=== PATIENT | male | born 1945 | race Caucasian/White ===

== ENCOUNTER 2018-02-18 07:58 | Day surgery (SDC) | payer MEDICARE, SELFPAY ==
--- NOTE | 2018-02-12 14:04 | EKG12_ITS ---
Test Reason : PRE OP Blood Pressure : / mmHG Vent. Rate : 065 BPM Atrial Rate : 065 BPM P-R Int : 144 ms QRS Dur : 088 ms QT Int : 380 ms P-R-T Axes : 055 060 073 degrees QTc Int : 395 ms Normal sinus rhythm Low voltage QRS ( limb leads) Confirmed by REBECA RICHARD, YOLANDA ([id number]), scientific publications editor CHRISTOPHER CROCKETT ([id number]) on 02/13/2018 4:30:49 PM Referred By: Shadi Root Confirmed By:YOLANDA JOSE MD
[2018-02-12 15:17] LABS: Hematocrit 43.5 % (40-54); Hemoglobin 14.3 g/dl (13.0-16.5); Mean Corp Hgb Conc 32.9 g/gl (32-36); Mean Corpuscular Volume 91.4 fL (80-94); Mean Platelet Vol. 10.7 fl (6.2-12.0); Platelet Count 176 K/mm3 (150-450); RBC Distribution Width CV 13.2 % (11.6-14.6); RBC Distribution Width SD 43.9 fl (35.1-43.9); Red Blood Count 4.76 M/mm3 (4.6-6.2); White Blood Count 4.4 K/mm3 (4.4-11.0)
[2018-02-12 15:41] LABS: Scan Indicated on CBC? Y/N NO
[2018-02-12 15:42] LABS: Anion Gap 7 (5-15); BUN 16 mg/dL (7-18); BUN/Creat Ratio 11.2 RATIO (10-20); Calcium,Total 8.7 mg/dL (8.5-10.1); Chloride 106 mmol/L (98-107); Creatinine, Serum 1.43 mg/dL (0.70-1.30); EST Glomerular Filtration Rate 51 mL/min (>60); Est Glom Filt Rate - Afr Amer 62 mL/min (>60); Glucose 104 mg/dL (74-106); Potassium 4.1 mmol/L (3.5-5.1); Sodium Level 142 mmol/L (136-145)
[2018-02-18] VITALS (7 sets, daily range): BP systolic 122–146; BP diastolic 80–93; PULSE 67–73; RESP 16; TEMP 36.3–36.6; O2SAT 92–94; BMI 35.4
--- NOTE | 2018-02-18 09:40 | TUR_PTH ---
PATIENT: RAE CORDERO LOC: [facility] [place] U#:[id number] AGE/SX: 72/M ROOM: RE02/18/[address]: Dr. Shadi Root MD : [id number] BED: DIS: 02/18/2018 SPEC #: [id number] RECD: 02/18/18 15:32 STATUS: MURIEL KUSH #: [id number] TESSA: 02/18/18 09:[address]: Shadi Root DEPT: SURGICAL PATHOLOGY RECD BY: Lan Das ENTERED: 02/19/18 08:29 SP TYPE: TURBINATES OTHR DR: Dr. Raymond Heredia MD Tissues: Nasal turbinate, NOS Procedures: Decalcification bone/plaque Surgery Specimen Level III HEADER OPERATION: Septoplasty, resect/outfracture turbinates PRE-OP DIAGNOSIS: Hypertrophy of nasal turbinates TISSUE SUBMITTED: Nasal septum and cartilage MICROSCOPIC DIAGNOSIS Nasal septum and cartilage, septoplasty: Fragments of hyaline cartilage and bone with reparative and reactive change. AM:kwan 02/22/18 MICROSCOPIC DESCRIPTION Slides are reviewed. GROSS DESCRIPTION Received in fixative is one container labeled with the patient's name and designated nasal septum and cartilage. The specimen consists of multiple fragments of cartilage and bone that in aggregate measure 5 x 3 x 0.3 cm. Service Director tissue is submitted in one cassette after decalcification. / SJ:kwan 02/19/18 TC:5 CPT: 60354, 84172
--- NOTE | 2018-02-18 10:01 | DCINST_ITS ---
You will use the following diet at home:: No restrictions, Regular Discharge Activity: Return to Normal Activity, - - no nose blowing Additional Activity Instructions:: Start saline nasal spray tomorrow. Irrigate 3-4x/day. Allergies/Adverse Reactions: Allergies No Known Allergies Allergy (Verified 02/18/18 08:38) Medications to take at Discharge Bupropion HCl [Wellbutrin Xl] 150 mg PO QHS 02/11/18 Glucosamine Sulf/Chondroitin A [Glucosamine-Chondroitin Cap] 2 each PO QHS 02/11/18 Multivitamin [Multiple Vitamins] 1 each PO QHS 02/11/18 Omeprazole [Prilosec] 40 mg PO QHS 02/11/18 RX: Terazosin HCl 10 mg PO QHS 02/11/18 Simvastatin [Zocor] 20 mg PO QHS 02/11/18 Orders to be completed after discharge: 12 Lead EKG [CVS] Time Frame: 02/12/18, Location: None Selected CBC-Complete Blood Cnt No Diff Time Frame: 02/12/18, Location: Laboratory Primary Care Physician: Raymond Heredia MD [Primary Care Provider] - Test Results: Test results from this visit will be discussed in further detail at your follow- up appointment, if applicable.
[2018-02-18] MEDS: Oxymetazoline 0.05% 1 SPRAY SPRAY.BTL 15 SPRAY (10:24)
[2018-02-18] MEDS: Mupirocin Ointment 22gm Tube 1 APPLIC (10:25)
--- NOTE | 2018-02-18 11:19 | PCM.OPRPT ---
Report of Operation Date of Procedure: 02/18/18 Pre-Operative Diagnosis: nasal airway obstruction. deviated septum. Inferior turbinate hypertrophy Post-Operative Diagnosis: same Surgery/Procedure Performed:: septoplasty. submucous resection of the inferior turbinates Description of Surgical Findings:: as above boiling tub operator: None Type of Anesthesia:: General Anesthesiologist: Sixto Harris Specimen's removed: septum Estimated Blood Loss (mL): 100 cc Description of Procedure: The patient was taken to the OR on 02/18/18. He was placed in the supine position on the OR table. He was given sufficient general endotracheal anesthesia. The head of bed was elevated 30 degrees. The patient was draped steriley. 1% lidocaine with epinephrine was injected into the septum, columella, nasal floor bilaterally and anterior aspect of the turbinates. I trimmed vibrissae with scissors. I then made a hemitransfixtion incision on the left with a 15 blade. I elevated the mucoperichondrium off off of the septum on the left. In this way, an anterior and posterior tunnel were created. I then the leon-cartilaginous junction. A posterior tunnel was created on the right with a freer. The deviated portion of the posterior quadrangular cartilage was removed with open Edouard Patel forceps. The deviated portions of the leon septum were taken down using the open Edouard Patel forceps. A large left septal spur was removed with a freer. The maxillary crest was taken down with a hammer and chisel. Hemostasis was achieved with afrin pledgets and willie. Next, I made an incision at the anterior aspect of the right inferior turbinate, at the mucocutaneous junction, with a 15 blade. A submucous pocket was dissected using a [place] elevator. Submucous resection was carried out with a microdebrider. Hemostasis was achieved with afrin pledgets. The incision was then closed with 4-0 chromic. Next, I made an incision at the anterior aspect of the left inferior turbinate, at the mucocutaneous junction, with a 15 blade. A submucous pocket was dissected using a Patti elevator. Submucous resection was carried out with a microdebrider. Hemostasis was achieved with afrin pledgets. The incision was then closed with 4-0 chromic. I sewed a rent in the septal mucosa, at the area of old spur, with 4-0 chromic. The hemitransfixtion incision was closed with 4-0 chromic. Montero nasal splints were applied to each side of the septum and sewn through and through with 3-0 silk. The patient was awoken. He was brought to the recovery room in stable condition. Blood loss 100 cc. Replacement none. Sponge, needle and instrument count were correct at the end of the procedure.
[2018-02-18] MEDS: HYDROcodone Bitartrate/Apap 5/325 Tablet PO (12:32)
--- OUTSIDE RECORDS SUMMARY | 2018-04-13 07:40 | XMS RPT_ITS ---
:1945 Author Organization OHIP Care Team Providers Name Role Phone RAYMOND ALEXANDER Referring Unavailable OLDER, ANNE (TELEMARKETING SALES REPRESENTATIVE) Attending Unavailable OLDER, ANNE (LINNETTE) Attending Unavailable LULA, ANNE (TELEMARKETING SALES REPRESENTATIVE) Referring Unavailable Shadi Root Attending Unavailable Shadi Root Referring Unavailable Raymond Alexander Primary Care Unavailable Moodisbabatunde, Shan Attending Unavailable Shadi Root Referring Unavailable PROBLEMS PROBLEMS DATE TYPE CONDITION / CODE ATTENDING STATUS SOURCE 02/21/2018 Unknown R94.31 - Abnormal [place], Active [place] electrocardiogram [facility] [ECG] [EKG] / Hospital R94.31(ICD-10) Repository 02/21/2018 Unknown I10 - Essential [place], Active [place] (primary) hypertension [facility] / I10(ICD-10) Hospital Repository 01/25/2005 Active Malignant neoplasm of NA Active [place] prostate / C61(ICD-10) [facility] [place] Repository 12/17/2017 Active Other hyperlipidemia / NA Active [place] E78.49(ICD-10) [facility] [place] Repository PROCEDURES PROCEDURES No Procedure Records FoundRESULTS RESULTS OPERATIVE REPORT Observed: 02/18/2018 Status: F Source: ALEXI 11:30 AM [facility] [place] [place] REPOSITORY [facility] Medical Records Department [address] [place] [address] Operative Report 02/18/18 1119 MR#: [id number] Acct: [id number] Name: PELON CORDERO Rep #: [id number] : 1945 72 From: Shadi Root MD PCP: Raymond Alexander MD Status: REG SDC Y Location: [place] [address] Report of Operation Date of Procedure: 02/18/18 Pre-Operative Diagnosis: nasal airway obstruction. deviated septum. Inferior turbinate hypertrophy Post-Operative Diagnosis: same Surgery/Procedure Performed:: septoplasty. submucous resection of the inferior turbinates Description of Surgical Findings:: as above sales expert: None Type of Anesthesia:: General Anesthesiologist: Sixto Harris Specimen's removed: septum Estimated Blood Loss (mL): 100 cc Description of Procedure: The patient was taken to the OR on 02/18/18. He was placed in the supine position on the OR table. He was given sufficient general endotracheal anesthesia. The head of bed was elevated 30 degrees. The patient was draped steriley. 1% lidocaine with epinephrine was injected into the septum, columella, nasal floor bilaterally and anterior aspect of the turbinates. I trimmed vibrissae with scissors. I then made a hemitransfixtion incision on the left with a 15 blade. I elevated the mucoperichondrium off off of the septum on the left. In this way, an anterior and posterior tunnel were created. I then the leon-cartilaginous junction. A posterior tunnel was created on the right with a freer. The deviated portion of the posterior quadrangular cartilage was removed with open [place] Patel forceps. The deviated portions of the leon septum were taken down using the open [place]ou[place] Patel forceps. A large left septal spur was removed with a freer. The maxillary crest was taken down with a hammer and chisel. Hemostasis was achieved with afrin pledgets and willie. Next, I made an incision at the anterior aspect of the right inferior turbinate, at the mucocutaneous junction, with a 15 blade. A submucous pocket was dissected using a [place] elevator. Submucous resection was carried out with a microdebrider. Hemostasis was achieved with afrin pledgets. The incision was then closed with 4-0 chromic. Next, I made an incision at the anterior aspect of the left inferior turbinate, at the mucocutaneous junction, with a 15 blade. A submucous pocket was dissected using a Patti elevator. Submucous resection was carried out with a microdebrider. Hemostasis was achieved with afrin pledgets. The incision was then closed with 4-0 chromic. I sewed a rent in the septal mucosa, at the area of old spur, with 4-0 chromic. The hemitransfixtion incision was closed with 4-0 chromic. Montero nasal splints were applied to each side of the septum and sewn through and through with 3-0 silk. The patient was awoken. He was brought to the recovery room in stable condition. Blood loss 100 cc. Replacement none. Sponge, needle and instrument count were correct at the end of the procedure. 02/18/18 1130 <Electronically signed by Shadi Root MD> Date Shadi Root MD CC: Shadi Root MD; Raymond Alexander MD Signed DISCHARGE INSTRUCTION Observed: 02/18/2018 Status: F Source: [place] 10:01 AM [facility] [place] [place] REPOSITORY [facility] Medical Records Department [address] [place] [id number] Instructions for Home/Discharge Instructions 02/18/18 1001 MR#: [id number] Acct: [id number] Name: PELON CORDERO Rep #: [id number] : 1945 72 From: Shadi Root MD PCP: Raymond Alexander MD Status: REG [facility] [place] You will use the following diet at home:: No restrictions, Regular Discharge Activity: Return to Normal Activity, - - no nose blowing Additional Activity Instructions:: Start saline nasal spray tomorrow. Irrigate 3-4x/day. Allergies/Adverse Reactions: Allergies No Known Allergies Allergy (Verified 02/18/18 08:38) Medications to take at Discharge Bupropion HCl [Wellbutrin Xl] 150 mg PO QHS 02/11/18 Glucosamine Sulf/Chondroitin A [Glucosamine-Chondroitin Cap] 2 each PO QHS 02/11/18 Multivitamin [Multiple Vitamins] 1 each PO QHS 02/11/18 Omeprazole [Prilosec] 40 mg PO QHS 02/11/18 RX: Terazosin HCl 10 mg PO QHS 02/11/18 Simvastatin [Zocor] 20 mg PO QHS 02/11/18 Orders to be completed after discharge: 12 Lead EKG [CVS] Time Frame: 02/12/18, Location: None Selected CBC-Complete Blood Cnt No Diff Time Frame: 02/12/18, Location: Laboratory Primary Care Physician: Raymond Alexander MD [Primary Care Provider] - Test Results: Test results from this visit will be discussed in further detail at your follow-up appointment, if applicable. 02/18/18 1001 <Electronically signed by Shadi Root MD> Date Shadi Root MD CC: Raymond Alexander MD TURBINATES Observed: 02/18/2018 Status: F Source: ALEXI 9:40 AM [facility] [place] [place] REPOSITORY Patient: PELON CORDERO : 1945 (72/M) Acct Num: [id number] Phys: Shadi Root MD Unit Num: [id number] Loc: [facility] [place] Specimen: [id number] Received: 02/18/181531 Spec Type: TURBINATES TISSUES 1 TISSUES: Nasal turbinate, NOS GROSS DESCRIPTION Received in fixative is one container labeled with the patient's name and designated nasal septum and cartilage. The specimen consists of multiple fragments of cartilage and bone that in aggregate measure 5 x 3 x 0.3 cm. Taxation Consultant tissue is submitted in one cassette after decalcification. / SJ: kwan 02/19/18 TC:5 CPT: 05520, 62880 HEADER OPERATION: Septoplasty, resect/outfracture turbinates PRE-OP DIAGNOSIS: Hypertrophy of nasal turbinates TISSUE SUBMITTED: Nasal septum and cartilage MICROSCOPIC DESCRIPTION Slides are reviewed. MICROSCOPIC DIAGNOSIS Nasal septum and cartilage, septoplasty: Fragments of hyaline cartilage and bone with reparative and reactive change. AM:kwan 02/22/18 Signed Jacinto Bates 02/22/18 <signature on file> Performed By: #### PTUR #### [facility] [place], [address] 12 LEAD ELECTROCARDIOGRAM Observed: 02/15/2018 Status: F Source: ALEXI 9:28 AM [facility] [place] [place] REPOSITORY [facility] Cardiovascular Services [address] [place] [address] 12 Lead EKG 02/12/18 1427 MR#: [id number] Acct: [id number] Name: PELON CORDERO Rep #: [id number] : 1945 72 From: Shan Jose MD Attending Dr: Shadi Root MD Status: PRE SDC Ordering Dr: Shadi Root MD Date: 02/12/18 Location: [facility] [place] Sex: M C Admitted: Test Reason : PRE OP Blood Pressure : / mmHG Vent. Rate : 065 BPM Atrial Rate : 065 BPM P-R Int : 144 ms QRS Dur : 088 ms QT Int : 380 ms P-R-T Axes : 055 060 073 degrees QTc Int : 395 ms Normal sinus rhythm Low voltage QRS ( limb leads) Confirmed by REBECA RICHARD, SHAN ([id number]), acquisition editor CHRISTOPHER CROCKETT ([id number]) on 02/13/2018 4:30:49 PM Referred By: Shadi Root Confirmed By:SHAN JOSE MD 02/13/18 1630 Date Shan Jose MD CC: Shadi Root MD; Raymond Alexander MD Signed CBC-COMPLETE BLOOD CNT Collected: 02/12/2018 Status: F Source: ALEXI NO DIFF 1:48 PM [facility] [place] [place] REPOSITORY TYPE CODE TESTS RESULT OUT OF RANGE REFERENCE UNITS LAB L100.1000 4.4-11.0 K/mm3 Normal WBC 4.4 LAB L100.1200 4.6-6.2 M/mm3 Normal RBC 4.76 LAB L100.1300 13.0-16.5 g/dl Normal HGB 14.3 LAB L100.1400 40-54 % Normal HCT 43.5 LAB L100.1500 80-94 fL Normal MCV 91.4 LAB L100.1600 27.0-32.0 pg Normal MCH 30.0 LAB L100.1700 32-36 g/gl Normal MCHC 32.9 LAB L100.1810 11.6-14.6 % Normal RDW CV 13.2 LAB L100.1820 35.1-43.9 fl Normal RDW SD 43.9 LAB L100.1900 150-450 K/mm3 Normal PLT 176 LAB L100.2000 6.2-12.0 fl Normal MPV 10.7 Performed By: #### L100.0500 #### [facility] [address] [place], [place], [address] BASIC METABOLIC Collected: 02/12/2018 Status: F Source: [place] PROFILE ([facility]) 1:48 PM [facility] [place] [place] REPOSITORY TYPE CODE TESTS RESULT OUT OF RANGE REFERENCE UNITS LAB L501.0100 74-106 mg/dL Normal GLU 104 Result Comment: Fasting Glucose result from 100 to 125 mg/dL suggests IMPAIRED HOMEOSTASIS per A.D.A. criteria. Please note revised GLUCOSE reference range effective 2017. LAB L501.1000 7-18 mg/dL Normal BUN 16 LAB L501.1100 0.70-1.30 mg/dL High CREAT,SERUM 1.43 Result Comment: The validity of the calculated GFR AND GFRAA in patients over 70 years has not been determined. Clinical correlation is essential. LAB L501.1110 >60 mL/min Low EST GFR 51 Result Comment: Non- GFR Calc LAB L501.1115 >60 mL/min Normal EST GFR - AA 62 Result Comment: GFR Calc LAB L501.1300 10-20 RATIO Normal BUN/CRE 11.2 LAB L501.2200 8.5-10.1 mg/dL CA Normal 8.7 LAB L501.5300 136-145 mmol/L NA Normal 142 LAB L501.5600 3.5-5.1 mmol/L K Normal 4.1 LAB L501.5900 98-107 mmol/L CL Normal 106 LAB L501.6100 21.0-32.0 mmol/L Normal CO2 29.0 LAB L501.6200 5-15 Normal GAP 7 Performed By: #### L500.2500 #### [facility] [address] [place], [address] PROGRESS Observed: 01/18/2018 Status: COMPLETED Source: [place] 10:09 AM [facility] REPOSITORY HNO ID: [id number] Author: Anne Bai) Older Service: (none) Author Type: Nurse Practitioner Type: Progress Notes Filed: 01/18/2018 10:29 AM Note Text: CC Patient presents with: 1 month follow up blood pressure HPI Pelon Cordero is a 72 year old male who presents to the office for blood pressure. His visit today is for follow-up. Patient was last seen for this approximately 1 month ago. Recent medication adjustments: Yes, hytrin increased to 10 mg daily. Home BP's: does check BP's away from this office with average BP's in the 120's over 70's range. Symptoms referable to elevated blood pressure (headache, chest pain, palpitations, dyspnea, peripheral edema, fatigue, blurred vision): No BP medications: Patient denies any side effects of his medication(s) and is compliant with their regimen. Last 4 Encounter BP Readings: Date: BP: 01/18/2018 120/70 12/21/2017 158/110 07/09/2017 122/72 01/11/2017 114/74 Last 3 Encounter Wt Readings: Date: Wt: 01/18/2018 109.6 kg (241 lb 9.6 oz) 12/21/2017 107.5 kg (237 lb) 07/09/2017 106.6 kg (235 lb) Patient attributes elevated BP to weight gain. Constantly overeats, eats even when he is full and portion sizes are large. Requesting medication to help curb his appetite. 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 - PERS HX MALIG SKIN MELANOMA 08/12/2005 - Unspecified sleep apnea 06/26/2005 PAST SURGICAL HISTORY Procedure Laterality Date - COLONOSCOP W/ OR W/O BRSH SPEC 06/25/15 Colonoscopy - COLONOSCOPY W/BX 11/14/05 - EGD W/ REM POLYP-SNARE STOMACH 11/14/05 - EGD W/O OR W/BRUSH/WASH EGD - EGD W/O OR W/BRUSH/WASH 06/25/15 EGD - LAPAROSCOPIC CHOLEYCYSTECTOMY 01/17 Cholecystectomy, lap - RADIATION ONCOLOGY PROCEDURE 2005 prostate ALLERGIES Patient has no known allergies. MEDICATIONS simvastatin (ZOCOR) 20 mg tablet Take 1 tablet by mouth daily at bedtime. terazosin (HYTRIN) 10 mg capsule Take 1 capsule by mouth daily at bedtime. Awnktourqnk-Nxplqppry-Wsw C-Mn (GLUCOSAMINE CHONDROITIN MAXSTR) 500-400 mg cap Take 1 capsule by mouth once daily. [DISCONTINUED] omeprazole (PRILOSEC) 20 mg capsule Take 2 capsules by mouth daily before breakfast. 1/2 hr before meal. FAMILY HISTORY Problem Relation Age of Onset - other (Stomach Cancer) Mother - other (Stomach Cancer) Brother - Heart Brother [place] age 53, half brother - None Sister Social History Substance Use Topics - Smoking status: Never Smoker - Smokeless tobacco: Never Used - Alcohol use No PHYSICAL EXAM BP 120/70 (BP Site: Left Arm, BP Position: Sitting, BP Cuff Size: Large Adult) Pulse 72 Temp 36.5 ?C (97.7 ?F) Resp 12 Wt 109.6 kg (241 lb 9.6 oz) SpO2 96% BMI 36.74 kg/m? General Appearance: well appearing, in no acute distress, alert Lungs: Lungs clear to auscultation. No wheezing, rhonchi, rales Heart: RRR without murmur, gallop, or rubs. No ectopy ASSESSMENT/PLAN: 1. Essential hypertension - ICD9: 401.9, ICD10: I10 (primary diagnosis) - good control - Continue current medication(s) - Encouraged dietary sodium restriction/DASH diet - Recommended regular aerobic exercise. - Recommend home blood pressure monitoring, to bring results in on next visit - Discussed need and benefit for weight loss. - Recheck in one year at annual physical, sooner should new symptoms or problems arise. - Goal of BP <130/80 2. Obesity, Class II, BMI 35-39.9 - ICD9: 278.00, ICD10: E66.9 Start Wellbutrin, see orders Call office for refills if effective Prescription instructions reviewed with patient as applicable. Potential red flag symptoms discussed with the patient. Reviewed appropriate action plan to take if red flag symptoms occur. Patient agreeable to treatment plan Anne Cotton APRN.CNP CNOV Observed: 01/18/2018 Status: COMPLETED Source: [place] 10:00 AM [facility] REPOSITORY Office Visit (INTMWS) PELON CORDERO ([id number]) 1945 M Date Time Provider Department 01/18/18 10:00 AM ANNE COTTON (LINNETTE) INTMWS During your visit today, we recorded the following information about you: Temperature Pulse Respiration Blood pressure 97.7 degrees 72/minute 12/minute 120/70 Weight 109.6 kg Anne Cotton APRN.CNP 01/18/2018 10:29 AM Signed CC Patient presents with: 1 month follow up blood pressure HPI Pelon Cordero is a 72 year old male who presents to the office for blood pressure. His visit today is for follow-up. Patient was last seen for this approximately 1 month ago. Recent medication adjustments: Yes, hytrin increased to 10 mg daily. Home BP's: does check BP's away from this office with average BP's in the 120's over 70's range. Symptoms referable to elevated blood pressure (headache, chest pain, palpitations, dyspnea, peripheral edema, fatigue, blurred vision): No BP medications: Patient denies any side effects of his medication(s) and is compliant with their regimen. Last 4 Encounter BP Readings: Date: BP: 01/18/2018 120/70 12/21/2017 158/110 07/09/2017 122/72 01/11/2017 114/74 Last 3 Encounter Wt Readings: Date: Wt: 01/18/2018 109.6 kg (241 lb 9.6 oz) 12/21/2017 107.5 kg (237 lb) 07/09/2017 106.6 kg (235 lb) Patient attributes elevated BP to weight gain. Constantly overeats, eats even when he is full and portion sizes are large. Requesting medication to help curb his appetite. 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 - PERS HX MALIG SKIN MELANOMA 08/12/2005 - Unspecified sleep apnea 06/26/2005 PAST SURGICAL HISTORY Procedure Laterality Date - COLONOSCOP W/ OR W/O BRSH SPEC 06/25/15 Colonoscopy - COLONOSCOPY W/BX 11/14/05 - EGD W/ REM POLYP-SNARE STOMACH 11/14/05 - EGD W/O OR W/BRUSH/WASH EGD - EGD W/O OR W/BRUSH/WASH 06/25/15 EGD - LAPAROSCOPIC CHOLEYCYSTECTOMY 01/17 Cholecystectomy, lap - RADIATION ONCOLOGY PROCEDURE 2005 prostate ALLERGIES Patient has no known allergies. MEDICATIONS simvastatin (ZOCOR) 20 mg tablet Take 1 tablet by mouth daily at bedtime. terazosin (HYTRIN) 10 mg capsule Take 1 capsule by mouth daily at bedtime. Exqaluziwvh-Tzeneydde-Trc C-Mn (GLUCOSAMINE CHONDROITIN MAXSTR) 500-400 mg cap Take 1 capsule by mouth once daily. [DISCONTINUED] omeprazole (PRILOSEC) 20 mg capsule Take 2 capsules by mouth daily before breakfast. 1/2 hr before meal. FAMILY HISTORY Problem Relation Age of Onset - other (Stomach Cancer) Mother - other (Stomach Cancer) Brother - Heart Brother [place] age 53, half brother - None Sister Social History Substance Use Topics - Smoking status: Never Smoker - Smokeless tobacco: Never Used - Alcohol use No PHYSICAL EXAM BP 120/70 (BP Site: Left Arm, BP Position: Sitting, BP Cuff Size: Large Adult) Pulse 72 Temp 36.5 ?C (97.7 ?F) Resp 12 Wt 109.6 kg (241 lb 9.6 oz) SpO2 96% BMI 36.74 kg/m? General Appearance: well appearing, in no acute distress, alert Lungs: Lungs clear to auscultation. No wheezing, rhonchi, rales Heart: RRR without murmur, gallop, or rubs. No ectopy ASSESSMENT/PLAN: 1. Essential hypertension - ICD9: 401.9, ICD10: I10 (primary diagnosis) - good control - Continue current medication(s) - Encouraged dietary sodium restriction/DASH diet - Recommended regular aerobic exercise. - Recommend home blood pressure monitoring, to bring results in on next visit - Discussed need and benefit for weight loss. - Recheck in one year at annual physical, sooner should new symptoms or problems arise. - Goal of BP <130/80 2. Obesity, Class II, BMI 35-39.9 - ICD9: 278.00, ICD10: E66.9 Start Wellbutrin, see orders Call office for refills if effective Prescription instructions reviewed with patient as applicable. Potential red flag symptoms discussed with the patient. Reviewed appropriate action plan to take if red flag symptoms occur. Patient agreeable to treatment plan LANDON Kline APRN.CNP 01/18/2018 10:19 AM Signed Bupropion: Side effects usually subside within 2 weeks, if they are still bothersome after this time please call me. Do not abrubtly stop this medicine. Many symptoms, which typically occurs within days of abruptly stopping this medication, may include dizziness, nausea, fatigue, muscle aches, chills, anxiety, and irritability. Although these symptoms are not dangerous and usually dissipate over one to two weeks, they can be quite distressing and uncomfortable.Avoid rrha-xpe-yybjheb St [place] Wart, Ephedra, Meridia, and others while on this medication. If you have any thoughts of suicide please call me or go to the Emergency Dept immediately. Referring Provider: ANNE COTTON ([facility]) [[id number]] Allergies As of Date: 01/18/2018 (No Known Allergies) Date Reviewed: 01/18/2018 Reviewed by: Maggie Iqbal LPN - Fully Assessed Reason for Visit: 1 month follow up blood pressure [Other] Primary Visit Diagnosis:Essential hypertension [I10] Other Visit Diagnosis:Obesity, Class II, BMI 35-39.9 [E66.9] Order(s):Omeprazole 40 mg capsuleTake 1 capsule by mouth once daily.Disp: 90 capsuleRfl: 3 buPROPion XL (WELLBUTRIN XL) 150 mg 24 hr tabletTake 1 tablet by mouth once daily.Disp: 30 tabletRfl: 1 Prescriptions as of 01/18/2018 Sig: SIMVASTATIN 20 MG TABLET Take 1 tablet by mouth daily * TERAZOSIN 10 MG CAPSULE Take 1 capsule by mouth daily* HSOCRLOCVKN-UIUIEHFXU-VWN C-M* Take 1 capsule by mouth once * OMEPRAZOLE 40 MG CAPSULE,TATY* Take 1 capsule by mouth once * BUPROPION XL 150 MG TAB Take 1 tablet by mouth once d* Problem List As Of Date 01/18/2018 Noted Resolved MALIGN NEOPL PROSTATE [C61] INVALID FOR* More... Hyperlipidemia [E78.5] INVALID FOR* Gastroesophageal reflux disease with esophagiti*INVALID FOR* Unspecified sleep apnea [G47.30] INVALID FOR*05/28/2015 Lumbago [M54.5] INVALID FOR*09/25/2012 Personal history of malignant melanoma of skin *INVALID FOR* More... 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 Do not abrubtly stop this medicine. Many symptoms, which typically occurs within days of abruptly stopping this medication, may include dizziness, nausea, fatigue, muscle aches, chills, anxiety, and irritability. Although these symptoms are not dangerous and usually dissipate over one to two weeks, they can be quite distressing and uncomfortable.Avoid oaci-mvb-cuvnugd St [place] Wart, Ephedra, Meridia, and others while on this medication. If you have any thoughts of suicide please call me or go to the Emergency Dept immediately. Prescriptions ordered this encounter Disp Refills Start End OMEPRAZOLE 40 MG CAPSULE,DELAYED REL* 90 c* 3 01/18/2018 Class: [facility] Route: ORAL Sig: Take 1 capsule by mouth once daily. BUPROPION XL 150 MG TAB 30 t* 1 01/18/2018 Route: ORAL Sig: Take 1 tablet by mouth once daily. Medications Discontinued During This Encounter omeprazole (PRILOSEC) 20 mg capsule 180 * 3 12/21/2017 01/18/2018 Route: ORAL Sig: Take 2 capsules by mouth daily before breakfast. 1/2 hr before meal. Disc: Course of therapy completed Encounter Status:Closed by ANNE COTTON CNP on 01/18/18 PROGRESS Observed: 12/21/2017 Status: COMPLETED Source: [place] 9:21 AM [facility] [place] REPOSITORY O ID: [id number] Author: Anne Cotton Service: (none) Author Type: Nurse Practitioner Type: Progress Notes Filed: 12/21/2017 10:00 AM Note Text: CC: Patient presents with: Imm/Inj: Flu Vaccine Physical HPI Pelon Cordero is a 72 year old male who presents today for physical exam. Concerns today: chronic rhinitis, nasal and sinus congestion. Getting worse. Flonase ineffective. Takes decongestants sparingly as they cause worsening urinary issues. HTN: does not check BP's generally but thought it may be high so started checking a couple weeks ago. Average has been in the 160's over 100. Denies any symptoms referable to elevated blood pressure. Specifically denies headache, chest pain, palpitations, dyspnea, peripheral edema and fatigue. Patient denies any side effects of his medication(s) and is compliant with their regimen. Attributes BP increase to weight gain of about 30 lbs. Exercise: denies regular aerobic exercise. Diet: Watches diet for salt (salty snacks, added salt, processed frozen/canned foods), sugary/sweet snacks, unhealthy fats: No. Caffeine: 4 servings daily Water intake: adequate Alcohol intake: No. Tobacco use: No Last 3 Encounter BP Readings: Date: BP: 12/21/2017 170/100 07/09/2017 122/72 01/11/2017 114/74 REVIEW OF SYSTEMS General: no fevers, no chills, no night sweats, no recurrent infections, no change in appetite and no change in energy Respiratory: no wheezing, no shortness of breath, no hemoptysis. Occasional cough, non-productive. GI: history of GERD, was well controlled with Prilosec 20 mg daily but since he gained weight symptoms worsened. Increased Prilosec to 40 mg about 6 weeks ago with marked improvement. Denies dysphagia. Negative for abdominal discomfort, blood in stools or black stools, change in bowel habit, nausea, vomiting : History of BPH. Urinary symptoms of frequency and nocturia are not well controlled with Hytrin 5 mg. Negative for dysuria, incontinence and hematuria PAST MEDICAL HISTORY Diagnosis Date - Actinic keratosis 09/09/2008 - Benign neoplasm of stomach - BPH with obstruction/lower urinary tract symptoms 08/27/2006 - Diarrhea - HTN (hypertension) 08/24/2009 - Lumbago 06/26/2005 - Malignant neoplasm of prostate (HCC) 2005 - 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 - PERS HX MALIG SKIN MELANOMA 08/12/2005 - Unspecified sleep apnea 06/26/2005 PAST SURGICAL HISTORY Procedure Laterality Date - COLONOSCOP W/ OR W/O BRSH SPEC 06/25/15 Colonoscopy - COLONOSCOPY W/BX 11/14/05 - EGD W/ REM POLYP-SNARE STOMACH 11/14/05 - EGD W/O OR W/BRUSH/WASH EGD - EGD W/O OR W/BRUSH/WASH 06/25/15 EGD - LAPAROSCOPIC CHOLEYCYSTECTOMY 01/17 Cholecystectomy, lap - RADIATION ONCOLOGY PROCEDURE 2005 prostate ALLERGIES Patient has no known allergies. MEDICATIONS terazosin (HYTRIN) 5 mg capsule Take 1 capsule by mouth daily at bedtime. simvastatin (ZOCOR) 20 mg tablet Take 1 tablet by mouth daily at bedtime. omeprazole (PRILOSEC) 20 mg capsule Take 1 capsule by mouth daily before breakfast. 1/2 hr before meal. Deyrvgrowzq-Wuobicgny-Jbg C-Mn (GLUCOSAMINE CHONDROITIN MAXSTR) 500-400 mg cap Take 1 capsule by mouth once daily. fluticasone (FLONASE) 50 mcg/actuation nasal spray Use 2 Sprays in each nostril once daily. FAMILY HISTORY Problem Relation Age of Onset - other (Stomach Cancer) Mother - other (Stomach Cancer) Brother - Heart Brother [place] age 53, half brother - None Sister Social History Substance Use Topics - Smoking status: Never Smoker - Smokeless tobacco: Never Used - Alcohol use No PHYSICAL EXAM BP 170/100 Pulse 77 Temp 36.4 ?C (97.6 ?F) (Temporal Artery) Resp 18 Wt 107.5 kg (237 lb) SpO2 93% BMI 36.04 kg/m? General Appearance: well appearing, in no acute distress, alert Pysch: mood and affect broad and appropriate Skin: Skin color, texture, turgor normal for age; Neck: Thyroid normal size and symmetric without palpable nodules, Neck supple, No adenopathy Oropharynx: lips normal without lesions, tongue midline and normal, soft palate, uvula, and tonsils normal Lymph nodes: No supraclavicular lymphadenopathy Lungs: Lungs clear to auscultation. No wheezing, rhonchi, rales Heart: RRR without murmur, gallop, or rubs. No ectopy Ext: no edema in LE bilaterally, good distal pulses DTAP,TDAP,TD(1 - Tdap) due on 01/12/2017 INFLUENZA(1) due on 11/17/2017 ANNUAL PCP TEAM CHRONIC DISEASE VISIT due on 01/11/2018 COLORECTAL CANCER SCREENING,SEE MODIFIER due on 06/24/2018 BP CONTROLLED (<130/80) due on 07/09/2018 DIABETES SCREEN due on 12/17/2020 LIPID SCREEN due on 12/17/2022 ADULT PREVNAR-13 Completed PNEUMOVAX AGE 65 AND OVER WITH 5YR LOOKBACK Completed Component Latest Ref Rng AND Units 12/17/2017 Protein, Total 6.3 - 8.0 g/dL 6.6 Albumin 3.9 - 4.9 g/dL 4.2 Calcium 8.5 - 10.2 mg/dL 9.0 Bilirubin, Total 0.2 - 1.3 mg/dL 0.6 Alkaline Phosphatase 38 - 113 U/L 58 AST 14 - 40 U/L 22 Glucose 74 - 99 mg/dL 121 (H) BUN 9 - 24 mg/dL 10 Creatinine 0.73 - 1.22 mg/dL 1.15 Sodium 136 - 144 mmol/L 139 Potassium 3.7 - 5.1 mmol/L 4.5 Chloride 97 - 105 mmol/L 100 CO2 22 - 30 mmol/L 29 Anion Gap 9 - 18 mmol/L 10 ALT 10 - 54 U/L 19 eGFR- >60 eGFR-All Other Races . >60 Cholesterol, Total <200 mg/dL 145 Triglyceride <150 mg/dL 186 (H) HDL Cholesterol >39 mg/dL 37 (L) LDL Cholesterol <100 mg/dL 71 Non HDL Cholesterol <130 mg/dL 108 Fasting Time hrs 10 VLDL Cholesterol <30 mg/dL 37 (H) TC:HDL Ratio <5.10 3.92 LDL:HDL Ratio <2.54 1.92 PSA 0.00 - 2.59 ng/mL 0.53 ASSESSMENT/PLAN: Discussed health maintenance, including regular aerobic exercise, low fat diet, and periodic exams. 1. Essential hypertension - ICD9: 401.9, ICD10: I10 (primary diagnosis) - suboptimal control - Increase Hytrin to 10 mg daily - Encouraged dietary sodium restriction/DASH diet - Recommended regular aerobic exercise. - Recommend home blood pressure monitoring, to bring results in on next visit - Discussed need and benefit for weight loss. - Recheck in 1 month, sooner should new symptoms or problems arise. - Reviewed risks of HTN and principles of treatment - TERAZOSIN 10 MG CAPSULE 2. Chronic rhinitis - ICD9: 472.0, ICD10: J31.0 - CONSULT TO ENT per patient request. Will call insurance to find someone close to home, referral printed and given to patient 3. Gastroesophageal reflux disease with esophagitis - ICD9: 530.11, ICD10: K21.0 - Discussed lifestyle modifications including losing weight, limiting caffeine, no meals three hours before sleep and head of bed elevation - Continue treatment with Prilosec 40 mg QD - Follow-up if symptoms persist or worsen - OMEPRAZOLE 20 MG CAPSULE,DELAYED RELEASE 4. BPH with obstruction/lower urinary tract symptoms - ICD9: 600.01, 599.69, ICD10: N40.1, N13.8 Increased dose of TERAZOSIN to 10 MG CAPSULE 5. Other hyperlipidemia - ICD9: 272.4, ICD10: E78.49 - good control - Discussed diet with plenty fruits, vegetables, lean meats and healthy fats/oils. Avoid processed foods, trans fats, vegetable oils and simple sugars. Watch portion sizes. - Continue current medication. - SIMVASTATIN 20 MG TABLET 6. Need for vaccination - ICD9: V05.9, ICD10: Z23 - INFLUENZA SEASONAL HIGH DOSE AGE 65+ Prescription instructions reviewed with patient as applicable. Potential red flag symptoms discussed with the patient. Reviewed appropriate action plan to take if red flag symptoms occur. Patient agreeable to treatment plan. Anne Cotton APRN.LINNETTE CNOV Observed: 12/21/2017 Status: COMPLETED Source: [place] 9:20 AM [facility] REPOSITORY Office Visit ([facility]) PELON CORDERO ([id number]) 1945 M Date Time Provider Department 12/21/17 9:20 AM ANNE COTTON (TELEMARKETING SALES REPRESENTATIVE) [facility] During your visit today, we recorded the following information about you: Temperature Pulse Respiration Blood pressure 97.6 degrees 77/minute 18/minute 158/110 Weight 107.5 kg Jaqueline Tony Cma 12/21/2017 10:00 AM Signed 72 year old male here for INACTIVATED INFLUENZA VACCINE. [id number] Season Patient is identified by name and date of : Yes [] CONTRAINDICATIONS color enhanced section Age less than 6 months? No Allergy to eggs, chicken, chicken feathers, or chicken dander? No Allergy to thimerosal (a preservative) or formaldehyde, gelatin? No History of severe reaction to any vaccine component or a previous dose of influenza vaccination? No History of Guillain-Mcnabb Syndrome within 6 weeks after a previous influenza vaccine? No Patient is not moderately or severely ill? No Current temperature greater or equal to 100.4F? No History of Bone Marrow Transplant prior 6 months or solid organ transplant in the past 3 months ? No History of fainting after a prior injection or medical procedure? No- ? If patient has fainted in the past, the CDC recommends sitting or lying down for 15 minutes after the vaccination. [] VERIFICATION color enhanced section Was the answer Yes for any of the above contraindications? No contraindications present. Acceptable to proceed with vaccine. Patient/guardian agrees the above answers are true to the best of their knowledge? Yes Flu vaccine information sheet given? Yes See immunization activity in [facility] for details of immunizations adminstered today. Patient age: [age] year old For The 1070-9702 Flu Season 6-35 months old: Fluzone 0.25 ml - IM (Preservative Free) 3 years of age: Fluzone 0.5 ml - IM (Preservative Free) 3 years and older: Fluzone 0.5 ml- IM-(with Preservatives) 65+ years old: 2-49 years old Fluzone High-Dose 0.5 ml - IM (Preservative Free) FLUMIST- intranasal REMEMBER: If patient is less than 9 years of age and this is the first vaccine of Influenza to be received in any flu season, they should receive a second dose in one months time. Anne Cotton APRN.CNP 12/21/2017 10:00 AM Signed CC: Patient presents with: Imm/Inj: Flu Vaccine Physical HPI Pelon Cordero is a 72 year old male who presents today for physical exam. Concerns today: chronic rhinitis, nasal and sinus congestion. Getting worse. Flonase ineffective. Takes decongestants sparingly as they cause worsening urinary issues. HTN: does not check BP's generally but thought it may be high so started checking a couple weeks ago. Average has been in the 160's over 100. Denies any symptoms referable to elevated blood pressure. Specifically denies headache, chest pain, palpitations, dyspnea, peripheral edema and fatigue. Patient denies any side effects of his medication(s) and is compliant with their regimen. Attributes BP increase to weight gain of about 30 lbs. Exercise: denies regular aerobic exercise. Diet: Watches diet for salt (salty snacks, added salt, processed frozen/canned foods), sugary/sweet snacks, unhealthy fats: No. Caffeine: 4 servings daily Water intake: adequate Alcohol intake: No. Tobacco use: No Last 3 Encounter BP Readings: Date: BP: 12/21/2017 170/100 07/09/2017 122/72 01/11/2017 114/74 REVIEW OF SYSTEMS General: no fevers, no chills, no night sweats, no recurrent infections, no change in appetite and no change in energy Respiratory: no wheezing, no shortness of breath, no hemoptysis. Occasional cough, non-productive. GI: history of GERD, was well controlled with Prilosec 20 mg daily but since he gained weight symptoms worsened. Increased Prilosec to 40 mg about 6 weeks ago with marked improvement. Denies dysphagia. Negative for abdominal discomfort, blood in stools or black stools, change in bowel habit, nausea, vomiting : History of BPH. Urinary symptoms of frequency and nocturia are not well controlled with Hytrin 5 mg. Negative for dysuria, incontinence and hematuria PAST MEDICAL HISTORY Diagnosis Date - Actinic keratosis 09/09/2008 - Benign neoplasm of stomach - BPH with obstruction/lower urinary tract symptoms 08/27/2006 - Diarrhea - HTN (hypertension) 08/24/2009 - Lumbago 06/26/2005 - Malignant neoplasm of prostate (HCC) 2005 - 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 - PERS HX MALIG SKIN MELANOMA 08/12/2005 - Unspecified sleep apnea 06/26/2005 PAST SURGICAL HISTORY Procedure Laterality Date - COLONOSCOP W/ OR W/O BRSH SPEC 06/25/15 Colonoscopy - COLONOSCOPY W/BX 11/14/05 - EGD W/ REM POLYP-SNARE STOMACH 11/14/05 - EGD W/O OR W/BRUSH/WASH EGD - EGD W/O OR W/BRUSH/WASH 06/25/15 EGD - LAPAROSCOPIC CHOLEYCYSTECTOMY 01/17 Cholecystectomy, lap - RADIATION ONCOLOGY PROCEDURE 2005 prostate ALLERGIES Patient has no known allergies. MEDICATIONS terazosin (HYTRIN) 5 mg capsule Take 1 capsule by mouth daily at bedtime. simvastatin (ZOCOR) 20 mg tablet Take 1 tablet by mouth daily at bedtime. omeprazole (PRILOSEC) 20 mg capsule Take 1 capsule by mouth daily before breakfast. 1/2 hr before meal. Ucffmqjretl-Wozzpmkie-Aof C-Mn (GLUCOSAMINE CHONDROITIN MAXSTR) 500-400 mg cap Take 1 capsule by mouth once daily. fluticasone (FLONASE) 50 mcg/actuation nasal spray Use 2 Sprays in each nostril once daily. FAMILY HISTORY Problem Relation Age of Onset - other (Stomach Cancer) Mother - other (Stomach Cancer) Brother - Heart Brother [place] age 53, half brother - None Sister Social History Substance Use Topics - Smoking status: Never Smoker - Smokeless tobacco: Never Used - Alcohol use No PHYSICAL EXAM BP 170/100 Pulse 77 Temp 36.4 ?C (97.6 ?F) (Temporal Artery) Resp 18 Wt 107.5 kg (237 lb) SpO2 93% BMI 36.04 kg/m? General Appearance: well appearing, in no acute distress, alert Pysch: mood and affect broad and appropriate Skin: Skin color, texture, turgor normal for age; Neck: Thyroid normal size and symmetric without palpable nodules, Neck supple, No adenopathy Oropharynx: lips normal without lesions, tongue midline and normal, soft palate, uvula, and tonsils normal Lymph nodes: No supraclavicular lymphadenopathy Lungs: Lungs clear to auscultation. No wheezing, rhonchi, rales Heart: RRR without murmur, gallop, or rubs. No ectopy Ext: no edema in LE bilaterally, good distal pulses DTAP,TDAP,TD(1 - Tdap) due on 01/12/2017 INFLUENZA(1) due on 11/17/2017 ANNUAL PCP TEAM CHRONIC DISEASE VISIT due on 01/11/2018 COLORECTAL CANCER SCREENING,SEE MODIFIER due on 06/24/2018 BP CONTROLLED (<130/80) due on 07/09/2018 DIABETES SCREEN due on 12/17/2020 LIPID SCREEN due on 12/17/2022 ADULT PREVNAR-13 Completed PNEUMOVAX AGE 65 AND OVER WITH 5YR LOOKBACK Completed Component Latest Ref Rng AND Units 12/17/2017 Protein, Total 6.3 - 8.0 g/dL 6.6 Albumin 3.9 - 4.9 g/dL 4.2 Calcium 8.5 - 10.2 mg/dL 9.0 Bilirubin, Total 0.2 - 1.3 mg/dL 0.6 Alkaline Phosphatase 38 - 113 U/L 58 AST 14 - 40 U/L 22 Glucose 74 - 99 mg/dL 121 (H) BUN 9 - 24 mg/dL 10 Creatinine 0.73 - 1.22 mg/dL 1.15 Sodium 136 - 144 mmol/L 139 Potassium 3.7 - 5.1 mmol/L 4.5 Chloride 97 - 105 mmol/L 100 CO2 22 - 30 mmol/L 29 Anion Gap 9 - 18 mmol/L 10 ALT 10 - 54 U/L 19 eGFR- >60 eGFR-All Other Races . >60 Cholesterol, Total <200 mg/dL 145 Triglyceride <150 mg/dL 186 (H) HDL Cholesterol >39 mg/dL 37 (L) LDL Cholesterol <100 mg/dL 71 Non HDL Cholesterol <130 mg/dL 108 Fasting Time hrs 10 VLDL Cholesterol <30 mg/dL 37 (H) TC:HDL Ratio <5.10 3.92 LDL:HDL Ratio <2.54 1.92 PSA 0.00 - 2.59 ng/mL 0.53 ASSESSMENT/PLAN: Discussed health maintenance, including regular aerobic exercise, low fat diet, and periodic exams. 1. Essential hypertension - ICD9: 401.9, ICD10: I10 (primary diagnosis) - suboptimal control - Increase Hytrin to 10 mg daily - Encouraged dietary sodium restriction/DASH diet - Recommended regular aerobic exercise. - Recommend home blood pressure monitoring, to bring results in on next visit - Discussed need and benefit for weight loss. - Recheck in 1 month, sooner should new symptoms or problems arise. - Reviewed risks of HTN and principles of treatment - TERAZOSIN 10 MG CAPSULE 2. Chronic rhinitis - ICD9: 472.0, ICD10: J31.0 - CONSULT TO ENT per patient request. Will call insurance to find someone close to home, referral printed and given to patient 3. Gastroesophageal reflux disease with esophagitis - ICD9: 530.11, ICD10: K21.0 - Discussed lifestyle modifications including losing weight, limiting caffeine, no meals three hours before sleep and head of bed elevation - Continue treatment with Prilosec 40 mg QD - Follow-up if symptoms persist or worsen - OMEPRAZOLE 20 MG CAPSULE,DELAYED RELEASE 4. BPH with obstruction/lower urinary tract symptoms - ICD9: 600.01, 599.69, ICD10: N40.1, N13.8 Increased dose of TERAZOSIN to 10 MG CAPSULE 5. Other hyperlipidemia - ICD9: 272.4, ICD10: E78.49 - good control - Discussed diet with plenty fruits, vegetables, lean meats and healthy fats/oils. Avoid processed foods, trans fats, vegetable oils and simple sugars. Watch portion sizes. - Continue current medication. - SIMVASTATIN 20 MG TABLET 6. Need for vaccination - ICD9: V05.9, ICD10: Z23 - INFLUENZA SEASONAL HIGH DOSE AGE 65+ Prescription instructions reviewed with patient as applicable. Potential red flag symptoms discussed with the patient. Reviewed appropriate action plan to take if red flag symptoms occur. Patient agreeable to treatment plan. Anne Cotton APRN.TELEMARKETING SALES REPRESENTATIVE Referring Provider: SELF [[id number]] Allergies As of Date: 12/21/2017 (No Known Allergies) Date Reviewed: 12/21/2017 Reviewed by: Jaqueline Tony Gasket Inspector - Fully Assessed Reason for Visit: Imm/Inj [58] Cmt: Flu Vaccine Physical [83] Reason For Visit History Recorded Primary Visit Diagnosis:Essential hypertension [I10] Other Visit Diagnoses:Chronic rhinitis [J31.0] Gastroesophageal reflux disease with esophagitis [K21.0] BPH with obstruction/lower urinary tract symptoms [N40.1, N13.8] Other hyperlipidemia [E78.49] Need for vaccination [Z23] Order(s):INFLUENZA SEASONAL HIGH DOSE AGE 65+ [[id number]] Order #: [id number] simvastatin (ZOCOR) 20 mg tabletTake 1 tablet by mouth daily at bedtime.Disp: 90 tabletRfl: 3 CONSULT TO ENT [3918] Order #: [id number]: 1 terazosin (HYTRIN) 10 mg capsuleTake 1 capsule by mouth daily at bedtime.Disp: 90 capsuleRfl: 3 omeprazole (PRILOSEC) 20 mg capsuleTake 2 capsules by mouth daily before breakfast. 1/2 hr before meal.Disp: 180 capsuleRfl: 3 Prescriptions as of 12/21/2017 Sig: SIMVASTATIN 20 MG TABLET Take 1 tablet by mouth daily * TERAZOSIN 10 MG CAPSULE Take 1 capsule by mouth daily* OMEPRAZOLE 20 MG CAPSULE,TATY* Take 2 capsules by mouth ko* OYOSNFPHDFF-[id number]-JBQ C-M* Take 1 capsule by mouth once * Problem List As Of Date 12/21/2017 Noted Resolved MALIGN NEOPL PROSTATE [C61] INVALID FOR* More... Hyperlipidemia [E78.5] INVALID FOR* Gastroesophageal reflux disease with esophagiti*INVALID FOR* Unspecified sleep apnea [G47.30] INVALID FOR*05/28/2015 Lumbago [M54.5] INVALID FOR*09/25/2012 Personal history of malignant melanoma of skin *INVALID FOR* More... 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 Disc: Changing Therapy/Dosage Form SIMVASTATIN 20 MG TABLET 90 t* 3 12/21/2017 Route: ORAL Sig: Take 1 tablet by mouth daily at bedtime. TERAZOSIN 10 MG CAPSULE 90 c* 3 12/21/2017 Cmt: DOSE INCREASE, DISCONTINUE 5 MG DOSE THAT WAS JUST E-SCRIPTED Route: ORAL Sig: Take 1 capsule by mouth daily at bedtime. OMEPRAZOLE 20 MG CAPSULE,DELAYED REL* 180 * 3 12/21/2017 Route: ORAL Sig: Take 2 capsules by mouth daily before breakfast. 1/2 hr before meal. Medications Discontinued During This Encounter fluticasone (FLONASE) 50 mcg/actuati* 3 Kel* 1 01/11/2017 12/21/2017 Class: [facility] Route: EACH NOSTRIL Sig: Use 2 Sprays in each nostril once daily. Disc: Lack of Efficacy terazosin (HYTRIN) 5 mg capsule 90 c* 3 01/11/2017 12/21/2017 Class: [facility] Route: ORAL Sig: Take 1 capsule by mouth daily at bedtime. Disc: Reason for discontinue is not on file. simvastatin (ZOCOR) 20 mg tablet 90 t* 3 01/11/2017 12/21/2017 Class: [facility] Route: ORAL Sig: Take 1 tablet by mouth daily at bedtime. Disc: Reason for discontinue is not on file. terazosin (HYTRIN) 5 mg capsule 90 c* 3 12/21/2017 12/21/2017 Route: ORAL Sig: Take 1 capsule by mouth daily at bedtime. Disc: Changing Therapy/Dosage Form omeprazole (PRILOSEC) 20 mg capsule 90 c* 3 01/11/2017 12/21/2017 Class: [facility] Route: ORAL Sig: Take 1 capsule by mouth daily before breakfast. 1/2 hr before meal. Disc: Reason for discontinue is not on file. Disposition: Return in about 1 year (around 12/21/2018) for annual physical. Follow-up and Disposition History Recorded Encounter Status:Closed by ANNE COTTON CNP on 12/21/17 PROGRESS Observed: 12/21/2017 Status: COMPLETED Source: [place] 9:16 AM [facility] REPOSITORY O ID: [id number] Author: Jaqueline Tony [facility] Service: (none) Author Type: (none) Type: Progress Notes Filed: 12/21/2017 10:00 AM Note Text: 72 year old male here for INACTIVATED INFLUENZA VACCINE. [id number] Season Patient is identified by name and date of : Yes [] CONTRAINDICATIONS color enhanced section Age less than 6 months? No Allergy to eggs, chicken, chicken feathers, or chicken dander? No Allergy to thimerosal (a preservative) or formaldehyde, gelatin? No History of severe reaction to any vaccine component or a previous dose of influenza vaccination? No History of Guillain-Mcnabb Syndrome within 6 weeks after a previous influenza vaccine? No Patient is not moderately or severely ill? No Current temperature greater or equal to 100.4F? No History of Bone Marrow Transplant prior 6 months or solid organ transplant in the past 3 months ? No History of fainting after a prior injection or medical procedure? No- ? If patient has fainted in the past, the CDC recommends sitting or lying down for 15 minutes after the vaccination. [] VERIFICATION color enhanced section Was the answer Yes for any of the above contraindications? No contraindications present. Acceptable to proceed with vaccine. Patient/guardian agrees the above answers are true to the best of their knowledge? Yes Flu vaccine information sheet given? Yes See immunization activity in [facility] for details of immunizations adminstered today. Patient age: [age] year old For The 3308-1515 Flu Season 6-35 months old: Fluzone 0.25 ml - IM (Preservative Free) 3 years of age: Fluzone 0.5 ml - IM (Preservative Free) 3 years and older: Fluzone 0.5 ml- IM-(with Preservatives) 65+ years old: 2-49 years old Fluzone High-Dose 0.5 ml - IM (Preservative Free) FLUMIST- intranasal REMEMBER: If patient is less than 9 years of age and this is the first vaccine of Influenza to be received in any flu season, they should receive a second dose in one months time. LIPID PANEL, BASIC Collected: 12/17/2017 Status: F Source: [place] 9:30 AM [facility] REPOSITORY TYPE CODE TESTS RESULT OUT OF REFERENCE UNITS RANGE LAB CHOL <200 mg/dL Cholesterol 145 Result Comment: <200 mg/dL, Desirable 200-239 mg/dL, Borderline high >239 mg/dL, High LAB TRIGLY <150 mg/dL Triglyceride High 186 Result Comment: <150 mg/dL, Normal 150-199 mg/dL, Borderline high 200-499 mg/dL, High >499 mg/dL, Very high LAB HDL >39 mg/dL HDL-Cholesterol Low 37 Result Comment: 40-59 mg/dL, Acceptable >59 mg/dL, High: Negative risk factor for coronary heart disease <40 mg/dL, Low: Positive risk factor for coronary heart disease LAB LDL <100 mg/dL LDL-Cholesterol 71 Result Comment: <100 mg/dL, Optimal 100-129 mg/dL, Near optimal/above optimal 130-159 mg/dL, Borderline high 160-189 mg/dL, High >189 mg/dL, Very high Secondary prevention optimal LDL Cholesterol levels are recommended to be < 70 mg/dL LAB NONHDL <130 mg/dL Non HDL Cholesterol 108 Result Comment: <130 mg/dL, Optimal 130-159 mg/dL, Near optimal/above optimal 160-189 mg/dL, Borderline high 190-219 mg/dL, High >219 mg/dL, Very high Secondary prevention optimal non HDL Cholesterol levels are recommended to be < 100 mg/dL LAB FT hrs Fasting Time 10 LAB VLDL <30 mg/dL High VLDL Cholesterol 37 LAB TCHDL <5.10 TC:HDL Ratio 3.92 LAB LDLHDL <2.54 LDL:HDL Ratio 1.92 Result Comment: Reference: 1. National Cholesterol Education Program ATP III Guideline At-A-Glance Quick Desk Reference: National Heart, Lung, and Blood [place]. National Institutes of Health. 2001: NIH Publication No. 01-3305. 2. An International Atherosclerosis Society position paper: global recommendations for the management of dyslipidemia: executive summary, Atherosclerosis. 2014: 232(2):410-413. Performed By: #### LIPB #### [facility] [address] [place], [place] [address] COMP METABOLIC PANEL Collected: 12/17/2017 Status: F Source: [place] 9:30 AM [facility] REPOSITORY TYPE CODE TESTS RESULT OUT OF REFERENCE UNITS RANGE LAB TP 6.3-8.0 g/dL Protein, Total 6.6 LAB ALB 3.9-4.9 g/dL Albumin 4.2 LAB CA 8.5-10.2 mg/dL Calcium, Total 9.0 LAB TBIL 0.2-1.3 mg/dL Bilirubin, Total 0.6 LAB ALKP 38-113 U/L Alkaline Phosphatase 58 LAB AST 14-40 U/L AST 22 LAB GLU 74-99 mg/dL Glucose High 121 Result Comment: The [place] [employer] (ADA) provides guidance for cutoff values for fasting glucose and random glucose. The ADA defines fasting as no caloric intake for at least 8 hours. Fas ting plasma glucose results between 100 to 125 mg/dL indicate increased risk for diabetes (prediabetes). Fasting plasma glucose results greater than or equal to 126 mg/dL meet the criteria for diagnosis of diabetes. In the absence of unequivocal hyperglycemia, results should be confirmed by repeat testing. In a patient with classic symptoms of hyperglycemia or hyperglycemic crisis, random plasma glucose results greater than or equal to 200 mg/dL meet the criteria for diagnosis of diabetes. Reference: Standards of Medical Care in Diabetes 2016, [place] [employer]. Diabetes Care. 2016.39(Suppl 1). LAB BUN 9-24 mg/dL BUN 10 LAB CRET 0.73-1.22 mg/dL Creatinine 1.15 LAB NA 136-144 mmol/L Sodium 139 LAB K 3.7-5.1 mmol/L Potassium 4.5 LAB CL 97-105 mmol/L Chloride 100 LAB CO2 22-30 mmol/L CO2 29 LAB AGAP 9-18 mmol/L Anion Gap 10 LAB ALT 10-54 U/L ALT 19 LAB GFRAA eGFR- Amer. >60 LAB GFRNAA . eGFR-All Other Races >60 Result Comment: eGFR (Estimated GFR) Units of measure: mL/min/1.73 meters squared eGFR is derived from the reexpressed MDRD Study equation using the following parameters: serum creatinine, age, gender and race. The creatinine assay has been calibrated to be traceable to IDNE. An eGFR <60 mL/min/1.73m2 for >3 months is consistent with chronic kidney disease. Refer to KDOQI guidelines for clinical interpretation. In patients with unstable renal function, e.g. those with acute kidney injury, the eGFR may not accurately reflect actual GFR. Performed By: #### CMP, PSA #### [facility] [address] [place], [place] [address] PSA, DIAGNOSTIC Collected: 12/17/2017 Status: F Source: [place] 9:30 AM [facility] [place] REPOSITORY TYPE CODE TESTS RESULT OUT OF REFERENCE UNITS RANGE LAB PSA 0.00-2.59 ng/mL PSA, Diagnostic 0.53 Result Comment: Total PSA test methodology used is the Electrochemiluminescence Immunoassay. Performed By: #### CMP, PSA #### [facility] [address] [place], [place] [address] CNCO Observed: 11/05/2017 Status: COMPLETED Source: [place] 12:00 AM [facility] REPOSITORY Letter Text Pelon Cordero [address] [place] [address] 11/05/2017 [facility] #: [id number] Dear , Due to a change in the provider's schedule it has been necessary to reschedule your Appointment. Your original appointment was scheduled for 12/21/2017 at 10:20 AM with Raymond Alexander M.D. Your new appointment is now scheduled on 12/21/2014 at 9:20 AM with LYNSEY Kline. If this new appointment is not convenient for you, please contact our office at [phone]. Thank you for choosing the [facility] as your Healthcare Provider . Sincerely, Internal Medicine Appointment Office PROGRESS Observed: 07/09/2017 Status: COMPLETED Source: [place] 7:48 AM [facility] REPOSITORY HNO ID: [id number] Author: Shadi Walters Service: (none) Author Type: Physician Type: Progress Notes Filed: 07/09/2017 8:11 AM Note Text: Patient presents with: Rash: right leg x aug. 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 - PERS HX MALIG SKIN MELANOMA 08/12/2005 - Unspecified sleep apnea 06/26/2005 MEDICATIONS: fluticasone (FLONASE) 50 mcg/actuation nasal spray Use 2 Sprays in each nostril once daily. terazosin (HYTRIN) 5 mg capsule Take 1 capsule by mouth daily at bedtime. simvastatin (ZOCOR) 20 mg tablet Take 1 tablet by mouth daily at bedtime. omeprazole (PRILOSEC) 20 mg capsule Take 1 capsule by mouth daily before breakfast. 1/2 hr before meal. Hfjnjxgfhxe-Euduhnvkw-Tgl C-Mn (GLUCOSAMINE CHONDROITIN MAXSTR) 500-400 mg cap Take 1 capsule by mouth once daily. ALLERGIES: ALLERGIES No Known Allergies VITALS: BP 122/72 Pulse 74 Temp 36.2 ?C (97.1 ?F) (Tympanic) Resp 16 Wt 106.6 kg (235 lb) BMI 35.73 kg/m2 Last 4 Encounter Wt Readings: Date: Wt: 07/09/2017 106.6 kg (235 lb) 01/11/2017 100.9 kg (222 lb 6.4 oz) 08/30/2015 105 kg (231 lb 6.4 oz) 07/22/2015 105.7 kg (233 lb) PHYSICAL EXAM: GEN: pleasant, no acute distress, alert SKIN: 6x12 cm patch of rash on the right mid lower leg lateral to the tibia. There are shallow excoriation ulcers/scabs. Mild ecchymosis and toughening of the skin. No discrete borders. Trace edema of both lower legs. ASSESSMENT/PLAN: 1. Rash - ICD9: 782.1, ICD10: R21 Consider contact dermatitis or fixed drug reaction. Limit scratching. Stop all other topical treatments. Start triamcinolone bid for 2 weeks. Follow up with dermatology if not resolving. He may need further evaluation including biopsy. Shadi Walters MD CNOV Observed: 07/09/2017 Status: COMPLETED Source: [place] 7:45 AM [facility] REPOSITORY Office Visit (WSTR) PELON CORDERO ([id number]) 1945 M Date Time Provider Department 07/09/17 7:45 AM SHADI WALTERS [facility] During your visit today, we recorded the following information about you: Temperature Pulse Respiration Blood pressure 97.1 degrees 74/minute 16/minute 122/72 Weight 106.6 kg Shadi Walters MD 07/09/2017 8:11 AM Signed Patient presents with: Rash: right leg x aug. 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 - PERS HX MALIG SKIN MELANOMA 08/12/2005 - Unspecified sleep apnea 06/26/2005 MEDICATIONS: fluticasone (FLONASE) 50 mcg/actuation nasal spray Use 2 Sprays in each nostril once daily. terazosin (HYTRIN) 5 mg capsule Take 1 capsule by mouth daily at bedtime. simvastatin (ZOCOR) 20 mg tablet Take 1 tablet by mouth daily at bedtime. omeprazole (PRILOSEC) 20 mg capsule Take 1 capsule by mouth daily before breakfast. 1/2 hr before meal. Pvmohahruqv-Mutntsfuw-Hfm C-Mn (GLUCOSAMINE CHONDROITIN MAXSTR) 500-400 mg cap Take 1 capsule by mouth once daily. ALLERGIES: ALLERGIES No Known Allergies VITALS: BP 122/72 Pulse 74 Temp 36.2 ?C (97.1 ?F) (Tympanic) Resp 16 Wt 106.6 kg (235 lb) BMI 35.73 kg/m2 Last 4 Encounter Wt Readings: Date: Wt: 07/09/2017 106.6 kg (235 lb) 01/11/2017 100.9 kg (222 lb 6.4 oz) 08/30/2015 105 kg (231 lb 6.4 oz) 07/22/2015 105.7 kg (233 lb) PHYSICAL EXAM: GEN: pleasant, no acute distress, alert SKIN: 6x12 cm patch of rash on the right mid lower leg lateral to the tibia. There are shallow excoriation ulcers/scabs. Mild ecchymosis and toughening of the skin. No discrete borders. Trace edema of both lower legs. ASSESSMENT/PLAN: 1. Rash - ICD9: 782.1, ICD10: R21 Consider contact dermatitis or fixed drug reaction. Limit scratching. Stop all other topical treatments. Start triamcinolone bid for 2 weeks. Follow up with dermatology if not resolving. He may need further evaluation including biopsy. Shadi Walters MD Referring Provider: SELF [200] Allergies As of Date: 07/09/2017 (No Known Allergies) Date Reviewed: 07/09/2017 Reviewed by: Crystal Torres Ma - Fully Assessed Reason for Visit: Rash [1087] Cmt: right leg x aug. started as edema Primary Visit Diagnosis:Rash [R21] Order(s):triamcinolone acetonide (KENALOG) 0.1 % creamApply 1 application to affected area twice daily for 14 days. Apply sparingly to area for rash/itching.Disp: 30 gRfl: 0 Prescriptions as of 07/09/2017 Sig: FLUTICASONE 50 MCG/ACTUATION * Use 2 Sprays in each nostril * TERAZOSIN 5 MG CAPSULE Take 1 capsule by mouth daily* SIMVASTATIN 20 MG TABLET Take 1 tablet by mouth daily * OMEPRAZOLE 20 MG CAPSULE,TATY* Take 1 capsule by mouth daily* ZTVNUHALCMC-HTTOIYICR-LDC C-M* Take 1 capsule by mouth once * TRIAMCINOLONE ACETONIDE 0.1 %* Apply 1 application to affect* Problem List As Of Date 07/09/2017 Noted Resolved MALIGN NEOPL PROSTATE [C61] INVALID FOR* More... Hyperlipidemia [E78.5] INVALID FOR* Gastroesophageal reflux disease with esophagiti*INVALID FOR* Unspecified sleep apnea [G47.30] INVALID FOR*05/28/2015 Lumbago [M54.5] INVALID FOR*09/25/2012 Personal history of malignant melanoma of skin *INVALID FOR* More... 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 Apply sparingly to area for rash/itching. Encounter Status:Closed by SHADI WALTERS MD on 07/09/17 ALLERGIES ALLERGIES DATE TYPE / CODE NAME / CODE REACTION SEVERITY SOURCE 02/18/2018 Drug No Known Unknown [facility] Allergy/416 Allergies/U05389 Hospital 086621(SNOM 0388(RXNORM) Repository ED CT) Drug NO KNOWN [facility] Class/78535 ALLERGIES [facility] 1003(SNOMED Repository CT) ENCOUNTERS ENCOUNTERS ADMIT/DISCHARGE ACCOUNT ADMITTING ENCOUNTER LOCATION SOURCE NUMBER CLASS 02/18/2018/02/19/[id number] ing:SDCRoom: Repository AC02 02/12/2018 [id number] [facility] 01/18/2018/01/22/20 [id number] Ambulatory [address] Repository 12/21/2017/12/25/19 [id number] Ambulatory [address] Repository 12/17/2017/12/18/19 [id number] Ambulatory [address] Repository 07/09/2017/07/11/19 [id number] Ambulatory [address] Repository PAYERS PAYERS ENCOUNTER GUARANTOR PAYER SUBSCRIBER SOURCE 02/18/2018 PELON [id number] [facility] [address] [id number] [address]Zmy: MEDICAREPolicy Repository Number: HP) [id number] Date: [facility] PRIYANKA RIDDLE [id number]: 02/18/2018 Secondary NOT GIVENUNK [place] Insurance:SELF PAY [facility] Number: Effective Repository Date:2018-01-02 02/12/2018 PELON GREENBERGY Olivia [id number] [facility] [address] [id number] [address]Eym: MEDICAREPolicy Repository Number: ) [id number] Date: [facility] JOVANNIRenny PUTNAMMadeleine [id number]: 02/12/2018 Secondary NOT GIVENUNK [place] Insurance:SELF PAY [facility]: Effective Repository Date:2018-02-12
== END 2018-02-18 13:34 | disposition home or self-care (01) ==
LOC: SDC 07:58 → AC 08:00
PROVIDERS: Family Provider Internal Medicine; PCP Internal Medicine; Referring Provider Otolaryngology; Visit Provider Otolaryngology
PROC: (CPT 30520; principal; 2018-02-18 09:25)
DX: J34.2 Deviated nasal septum (principal); J34.3 Hypertrophy of nasal turbinates; Z85.46 Personal history of malignant neoplasm of prostate; Z85.820 Personal history of malignant melanoma of skin; Z92.3 Personal history of irradiation; Z79.899 Other long term (current) drug therapy; I10 Essential (primary) hypertension; G47.30 Sleep apnea, unspecified
CPT/HCPCS: 30140; 30520; 36415; 80048; 85027; 88304; 88311; 93005; J7120; J2405